=== PATIENT | female | born 1960 ===

== ENCOUNTER 2021-06-10 06:38 | Day surgery (SDC) | payer OTHER ==
[~2021-06-10 06:38] MED LIST: LEXAPRO20 MG PO
== END 2021-06-10 15:30 | disposition home or self-care (01) ==
LOC: CIR.AMB 06:38
PROVIDERS: ATTEND Orthopaedic Surgery Hand Surgery
DX: G56.01 Carpal tunnel syndrome, right upper limb (principal); Z20.822 Contact with and (suspected) exposure to COVID-19

== ENCOUNTER 2022-07-05 11:22 | Emergency (ER) | payer BC ==
[~2022-07-05] VITALS: Ht 157.5 cm; Wt 68.0 kg
[2022-07-05] MEDS ORDERED: TUSNEL DM LIQU473 ML PO (16:01)
[2022-07-05] MEDS ORDERED: MEDROLPACK PO (16:01)
== END 2022-07-05 16:07 | disposition home or self-care (01) ==
LOC: ER 11:22
DX: J06.9 Acute upper respiratory infection, unspecified (principal); J40 Bronchitis, not specified as acute or chronic